=== PATIENT | female | born 1945 | race Caucasian/White ===

== ENCOUNTER 2018-06-30 09:27 | Inpatient (IN) | payer BC ==
[~2018-06-30] VITALS: Ht 147.3 cm; Wt 88.5 kg
[~2018-06-30 09:27] MED LIST: ACETAMINOPHEN-1 EAC1 PO; AVELOX 400 MG400 MG PO; IBUPROFEN 600600 M1 PO; MELATONIN3 MG PO; MUCINEX D TABL1 EAC1; NAPROSYN500 MG PO; PRINIVIL5 MG PO; ULTRAM 50MG TAB50 MG PO; VALIUM5 MG PO; VITAMIN B-12500 MCG PO; XOPENEX HFA15 GM IH; ZPAK PO
[2018-06-30 09:41] VITALS: BP 230/102
[2018-06-30] MEDS ORDERED: ALLOPURINOL 10100 M1 PO (09:48)
[2018-06-30 10:32] LABS: ABSOLUTE BASOPHILS 0.1 thou/uL (0.0-0.2); ABSOLUTE EOSINOPHILS 0.3 thou/uL (0.0-0.7); ABSOLUTE LYMPHOCYTES 3.4 thou/uL (0.8-5.3); ABSOLUTE MONOCYTES 0.7 thou/uL (0.0-1.2); ABSOLUTE NEUTROPHILS 6.7 thou/uL (1.6-8.1); BASOPHILS 1.1 %; HEMATOCRIT 43.5 % (37.0-47.0); HEMOGLOBIN 14.7 gm/dL (12.0-15.0); LYMPHOCYTES 30.2 %; MCHC 33.8 g/dL (28.0-37.0); MCV 85.9 fL (80.0-100.0); MONOCYTES 5.9 %; MPV 9.5 fl. (7.2-11.1); NUCLEATED RBCS 0 /100WBC; PLATELET COUNT* 294 thou/uL (150-400); POLYS 59.8 %; RBC 5.07 mil/uL (4.20-5.00); RDW-CV 14.4 % (10.5-14.5); WBC 11.1 thou/uL (4.0-11.0)
[2018-06-30 10:36] LABS: URINE BILIRUBIN NEGATIVE (Negative); URINE BLOOD NEGATIVE (Negative); URINE CLARITY CLEAR; URINE COLOR YELLOW; URINE GLUCOSE-RANDOM NEGATIVE (Negative); URINE KETONES NEGATIVE (Negative); URINE LEUKOCYTES-REFLEX 1+ (Negative); URINE NITRITE-REFLEX NEGATIVE (Negative); URINE PROTEIN NEGATIVE (Negative); URINE SPECIFIC GRAVITY 1.015 (1.005-1.030); URINE UROBILINOGEN 0.2 E.U./dl (0.2-1.0)
[2018-06-30 10:59] LABS: BACTERIA-REFLEX 1-9 Few /HPF (None Seen); CASTS None Seen /LPF (None Seen); CRYSTALS None Seen /LPF (None Seen); MUCUS 0-3 Light strn/LPF (None Seen); SQUAMOUS 4-10 Moderate /LPF (0-3); URINE RBC 0-2 Rare /HPF (0-2); URINE WBC-REFLEX 0-5 Rare /HPF (0-5)
[2018-06-30 11:13] LABS: BE -2.1 mmol/L (-2 to +3); PCO2 20.2 mmHg (35.0-45.0); PO2 96.9 mmHg (75.0-100.0); pH 7.557 (7.340-7.450)
[2018-06-30 11:15] LABS: PROTIME 10.3 Seconds (9.20-11.50)
[2018-06-30 11:33] LABS: ALBUMIN 3.6 g/dL (3.4-5.0); ALKALINE PHOSPHATASE 88 U/L (46-116); ANION GAP 13 mmol/L (7-16); BUN 22 mg/dL (7-18); CALCIUM 10.1 mg/dL (8.5-10.1); CHLORIDE 104 mmol/L (98-107); CO2 25 mmol/L (21-32); CREATININE 1.2 mg/dL (0.6-1.3); GLUCOSE 109 mg/dL (70-99); SGOT 16 U/L (15-37); SGPT 16 U/L (30-65); SODIUM 142 mmol/L (136-145); TOTAL BILIRUBIN 0.7 mg/dL (<0.1-1.0); TOTAL PROTEIN 7.8 g/dL (6.4-8.2); TROPONIN-I LEVEL <0.06 ng/mL (<0.06)
[2018-06-30 17:07] VITALS: BP 181/72
[2018-06-30 21:05] VITALS: BP 131/54
[2018-06-30 23:36] VITALS: BP 131/54
[2018-07-01 04:00] VITALS: BP 126/71
[2018-07-01 08:00] VITALS: BP 126/69
--- NOTE | 2018-07-01 09:57 | EKG ---
[place] [address] ELECTROCARDIOGRAM REPORT Name: AMANDA CEDEÑO Room: [address] ADM IN ..#: [id number] Admission: 06/30/18 Attend Phys: Semaj Mcgarry Discharge: Date of : 47 Report #: [id number] THIS REPORT FOR: //name// [facility] ED Test Date: 2018-06-30 Test Time: 10:24:44 Pat Name: AMANDA CEDEÑO Department: Room: [facility] Gender: F Delimer: : 1945 Requested By: Ni Roberts Order Number: [id number] MD: Spencer Albrecht Measurements Intervals [place] Rate: 45 P: 80 RI: 259 QRS: -23 QRSD: 91 T: 19 QT: 561 QTc: 486 Interpretive Statements Sinus bradycardia Prolonged RI interval poor r wave progression Compared to ECG 11/06/2014 09:53:21 rate slowed Electronically Signed On 07-01-2018 9:57:05 CDT by Spencer Albrecht [email or web address] <ELECTRONICALLY SIGNED> By: Spencer Albrecht MD, [facility] 07/01/18 0957 [phone] Spencer Albrecht MD, [facility] /EPI
[2018-07-01 16:36] VITALS: BP 138/68
[2018-07-01 17:48] VITALS: BP 147/87
[2018-07-01 20:00] VITALS: BP 146/69
[2018-07-02] VITALS: BP 137/66
[2018-07-02 04:00] VITALS: BP 120/69
[2018-07-02 07:39] LABS: CHOLESTEROL 167 mg/dL (<200); HDL CHOLESTEROL 45 mg/dL (>40); LDL CHOLESTEROL 96 mg/dL (<100); TC:HDL 3.7 Ratio (Not establshd); TRIGLYCERIDE 132 mg/dL (<150); VLDL 26 mg/dL (<40)
[2018-07-02 07:44] LABS: SERUM ASSESSMENT Clear
[2018-07-02 07:45] VITALS: BP 138/71
[2018-07-02] MEDS ORDERED: NORVASC10 MG PO (11:38)
[2018-07-02 12:12] VITALS: BP 136/68
[2018-07-02 13:03] VITALS: BP 136/68
[2018-07-02 13:34] VITALS: BP 136/68
--- NOTE | 2018-07-02 14:17 | CON ---
[address] [address] CONSULTATION Name: GALAAMANDA Room: [address] IN .R.#: [id number] Admission: 06/30/18 Attend Phys: Semaj Mcgarry Discharge: 07/02/18 Date of : 47 Report #: [id number] THIS REPORT FOR: //name// CC: Angie Sheikh DATE OF SERVICE: 07/01/2018 PRIMARY CARE PHYSICIAN: Dr. Zaragoza in [place], [place]. HISTORY OF PRESENT ILLNESS: The patient is a 73-year-old white female who I was asked to see in the hospital after she is noted to be bradycardic. The history is obtained from the patient and her daughter who is present. The patient was previously admitted here to [facility] in 2015 with pneumonia. She apparently had a history of hypertension and sleep apnea. She was discharged with CPAP. She states she has a history of high blood pressure, but recently has not been taking any blood pressure medications. She states she was doing well since the last couple of days. She has felt lightheaded and dizzy. Her daughter noticed slurred speech. She was brought to the Emergency Room last night to be bradycardic. She was admitted for further evaluation and treatment. She has noted left-sided headache, but no vomiting or diarrhea. She has had no bleeding. Denies any fluttering of her heart, but did note her heart occasionally pound. She does get short of breath with exertion. She has had no significant edema. She has had no syncope. PAST MEDICAL HISTORY: She has had tonsillectomy, cholecystectomy, diabetes. She has a history of gout, GERD. CURRENT MEDICATIONS: Consists of no chronic medications. ALLERGIES: SHE HAS INTOLERANCE TO HYDROCODONE. FAMILY HISTORY: Father had heart disease. SOCIAL HISTORY: She is . She and her live in [place]. No smoking or alcohol use. REVIEW OF SYSTEMS: She is overweight, being 4 feet 10 inches, weight 250 pounds. She has a history of asthma. No history of peptic ulcer disease, liver disease, kidney disease, cancer, psychiatric illness, chronic skin condition. PHYSICAL EXAMINATION: GENERAL: Revealed an elderly female, lying in bed. She appeared in no acute distress. VITAL SIGNS: She had blood pressure elevated 160/90, [place] 60[place] [address] CONSULTATION Name: AMANDA CEDEÑO Jany Room: [address]#: [id number] Admission: 06/30/18 Attend Phys: Semaj Mcgarry Discharge: 07/02/18 Date of : 47 Report #: [id number] HEENT: She was anicteric, conjunctivae pink. Mucous membranes are moist. NECK: Veins do not appear distended. No carotid bruits. CHEST: Clear to auscultation. CARDIOVASCULAR: Regular rate and rhythm, grade 2 systolic ejection murmur. ABDOMEN: Soft. EXTREMITIES: Had no pitting edema. SKIN: Cool and dry. NEUROLOGIC: Nonfocal. RADIOLOGICAL DATA: ECG showed a sinus bradycardia, first-degree AV block, no acute ST or T-wave change. LABORATORY DATA: Sodium 142, creatinine 1.2. Liver function studies were normal. Troponin 0.06. TSH 1.64. Her white blood cell count 7.1, hemoglobin 14.7. She had x-rays in the Emergency Room last night that include a CT scan of the head without contrast that was unremarkable. Chest x-ray: Normal heart size, clear lung alas. IMPRESSION AND RECOMMENDATIONS: 1. Hypertension. I would recommend starting an ARB. 2. Sinus bradycardia. Would avoid beta blockers. 3. Obesity. 4. History of headache. 5. History of gout. <ELECTRONICALLY SIGNED> By: Spencer Albrehct MD, FACC 07/02/18 1417 1101 [id number] Albrecht MD, FACC /nt
--- NOTE | 2018-07-02 15:32 | 2DMMODE ---
[place] [address] 2 D/M-MODE ECHOCARDIOGRAM Name: AMANDA CEDEÑO Room: [address]#: [id number] Admission: 06/30/18 Attend Phys: Luna Sheikh Discharge: 07/02/18 Date of : 47 Date of Service: 07/02/18 1532 Report #: [id number] THIS REPORT FOR: //name// APPROVED REPORT Study performed: 07/02/2018 09:54:04 EXAM: Comprehensive 2D, Doppler, and color-flow Echocardiogram Patient Location: In-Patient Room #: 230 Status: routine BSA: 1.80 HR: 67 bpm BP: 126/69 mmHg Rhythm: NSR Other Information Study Quality: Good Indications CVA/TIA Hypertension/HDD Echo Enhancing Agent Indication: Rule out Shunt Agent(s) / Amount(s) Used: Agitated Saline 10 cc 2D Dimensions IVSd: 13.21 (7-11mm) LVOT Diam: 20.07 (18-24mm) LVDd: 38.54 mm PWd: 10.05 (7-11mm) Ascending Ao: 37.04 (22-36mm) LVDs: 16.77 (25-40mm) Aortic Root: 30.44 mm Volumes Left Atrial Volume (Systole) LA ESV Index: 29.10 mL/m2 Aortic Valve AoV Peak Rory.: 1.39 m/s AO Peak Gr.: 7.77 mmHg LVOT Max P.63 mmHg AO Mean Gr.: 4.54 mmHg LVOT Mean P.12 mmHg LVOT Max V: 1.08 m/s AO V2 VTI: 30.86 cm LVOT Mean V: 0.66 m/s CRISTHIAN (VTI): 3.07 cm2 LVOT V1 VTI: 29.93 [place] [address] 2 D/M-MODE ECHOCARDIOGRAM Name: AMANDA CEDEÑO Room: [address]#: [id number] Admission: 06/30/18 Attend Phys: Luna Sheikh Discharge: 07/02/18 Date of : 47 Date of Service: 07/02/18 1532 Report #: [id number] Mitral Valve E/A Ratio: 0.76 MV Decel. Time: 300.43 ms MV E Max Rory.: 0.88 m/s MV PHT: 87.13 ms MVA (PHT): 2.53 cm2 TDI E/Lateral E': 9.78 E/Medial E': 11.00 Medial E' Rory.: 0.08 m/s Lateral E' Rory.: 0.09 m/s Pulmonary Valve PV Peak Rory.: 1.31 m/s PV Peak Gr.: 6.91 mmHg Left Ventricle The left ventricle is normal size. There is normal LV segmental wall motion. Mild concentric left ventricular hypertrophy. Left ventricular systolic function is normal. LVEF is 65-70%. Grade I - abnormal relaxation pattern. Right Ventricle The right ventricle is normal size. The right ventricular systolic function is normal. Atria The left atrium size is normal. Interatrial septum is intact without evidence of ASD or PFO. The right atrium size is normal. Aortic Valve The aortic valve is normal in structure. No aortic regurgitation is present. There is no aortic valvular stenosis. Mitral Valve The mitral valve is normal in structure. There is no mitral valve regurgitation noted. No evidence of mitral valve stenosis. Tricuspid Valve The tricuspid valve is normal in structure. There is no tricuspid valve regurgitation noted. Pulmonic Valve The pulmonary valve is normal in structure. [place] [address] 2 D/M-MODE ECHOCARDIOGRAM Name: AMANDA CEDEÑO Room: [address] IN .R.#: [id number] Admission: 06/30/18 Attend Phys: Luna Sheikh Discharge: 07/02/18 Date of : 47 Date of Service: 07/02/18 1532 Report #: [id number] Great Vessels The aortic root is normal in size. IVC is not well visualized. Pericardium There is no pericardial effusion. <Conclusion> The left ventricle is normal size. Mild concentric left ventricular hypertrophy. Left ventricular systolic function is normal. LVEF is 65-70%. Grade I - abnormal relaxation pattern. Interatrial septum is intact without evidence of ASD or PFO. <ELECTRONICALLY SIGNED> By: Matt Escamilla MD, FACC 07/02/18 [phone] Matt Escamilla MD, FACC /INF
== END 2018-07-02 13:40 | disposition home or self-care (01) | DRG 305 ==
LOC: M.ERS 09:27 → M.2W 12:36 → M.TBA-ER 12:36 → M.2W 23:33
PROVIDERS: Internal Medicine Cardiovascular Disease; Personal Emergency Response Attendant; ADMIT Internal Medicine
DX: I16.1 Hypertensive emergency (principal); G45.9 Transient cerebral ischemic attack, unspecified; Z68.41 Body mass index [BMI] 40.0-44.9, adult; I10 Essential (primary) hypertension; R00.1 Bradycardia, unspecified; E11.9 Type 2 diabetes mellitus without complications; M10.9 Gout, unspecified; K21.9 Gastro-esophageal reflux disease without esophagitis; E66.9 Obesity, unspecified; M62.838 Other muscle spasm; Z90.49 Acquired absence of other specified parts of digestive tract; Z87.01 Personal history of pneumonia (recurrent); Z82.49 Family history of ischemic heart disease and other diseases of the circulatory system; Z88.6 Allergy status to analgesic agent; Z79.899 Other long term (current) drug therapy